=== PATIENT | female | born 1990 | race African-American/Black ===

== ENCOUNTER 2022-02-15 13:41 | Outpatient (CLI) | payer OTHER | END 2022-02-15 15:01 | disposition home or self-care (01) | LOC: PRENATAL 13:41 | PROVIDERS: ATTEND Obstetrics & Gynecology Maternal & Fetal Medicine | DX: O35.0XX0 Maternal care for (suspected) central nervous system malformation in fetus, not applicable or unspecified (principal); O35.3XX0 Maternal care for (suspected) damage to fetus from viral disease in mother, not applicable or unspecified; Z3A.11 11 weeks gestation of pregnancy ==

== ENCOUNTER 2022-04-20 12:54 | Outpatient (CLI) | payer OTHER | END 2022-04-20 14:15 | disposition home or self-care (01) | LOC: PRENATAL 12:54 | PROVIDERS: ATTEND Obstetrics & Gynecology Maternal & Fetal Medicine | DX: O35.0XX0 Maternal care for (suspected) central nervous system malformation in fetus, not applicable or unspecified (principal); O35.3XX0 Maternal care for (suspected) damage to fetus from viral disease in mother, not applicable or unspecified; O99.210 Obesity complicating pregnancy, unspecified trimester; Z3A.21 21 weeks gestation of pregnancy ==

== ENCOUNTER 2022-07-11 13:24 | Outpatient (CLI) | payer OTHER | END 2022-07-11 14:56 | disposition home or self-care (01) | LOC: PRENATAL 13:24 | PROVIDERS: ATTEND Obstetrics & Gynecology Maternal & Fetal Medicine | DX: O26.849 Uterine size-date discrepancy, unspecified trimester (principal); O35.0XX0 Maternal care for (suspected) central nervous system malformation in fetus, not applicable or unspecified; O99.210 Obesity complicating pregnancy, unspecified trimester; Z3A.32 32 weeks gestation of pregnancy ==

== ENCOUNTER 2022-08-20 13:45 | Inpatient (IN) | payer OTHER ==
[~2022-08-20] VITALS: Ht 167.6 cm; Wt 3.2 kg
[2022-08-27] MEDS ORDERED: PRENATAL TABLE1 EAC3 PO (08:20)
[2022-08-27] MEDS ORDERED: IRON325 MG PO (08:20)
== END 2022-08-31 11:53 | disposition home or self-care (01) | DRG 788 ==
LOC: EDSTATUS 13:45 → LDR 08-27 07:08 → OB/GYN 08-28 18:21
PROVIDERS: ADMIT Obstetrics & Gynecology; ATTEND Obstetrics & Gynecology
PROC: 4A1HXCZ Monitoring of Products of Conception, Cardiac Rate, External Approach (ICD-10-PCS; 2022-08-27)
PROC: 10D00Z1 Extraction of Products of Conception, Low, Open Approach (ICD-10-PCS; principal; 2022-08-28 15:00)
DX: O82 Encounter for cesarean delivery without indication (principal); Z3A.39 39 weeks gestation of pregnancy; Z37.0 Single live birth; Z20.822 Contact with and (suspected) exposure to COVID-19

== ENCOUNTER 2022-09-02 09:30 | Emergency (ER) | payer OTHER ==
[~2022-09-02] VITALS: Ht 167.6 cm; Wt 90.7 kg
[~2022-09-02 09:30] MED LIST: IRON325 MG PO; PRENATAL TABLE1 EAC3 PO
== END 2022-09-02 14:41 | disposition home or self-care (01) ==
LOC: ER 09:30
DX: K59.00 Constipation, unspecified (principal)